=== PATIENT | female | born 1950 | race Caucasian/White ===

== ENCOUNTER 2016-07-18 15:55 | Emergency (ER) | payer BC ==
[2016-07-18 16:31] VITALS: BP 121/76
--- NOTE | 2016-07-18 17:02 | UC ---
Complaint Female HPI - HPI Summary HPI Summary: Patient has had unusually large volume of vaginal discharge for the past three weeks, denies any pain or odor. She is not sexually active. according to patient is has been longer then 10 years - History Of Current Complaint Chief Complaint: [facility] Stated Complaint: DISCHARGE Time Seen by Provider: 07/18/16 16:40 Hx Obtained From: Patient ?: No Onset/Duration: Sudden Onset, Lasting Weeks Timing: Constant Severity Initially: Mild Severity Currently: Moderate Aggravating Factor(s): Nothing Alleviating Factor(s): Nothing Associated Signs And Symptoms: Positive: Vaginal Discharge - Allergies/Home Medications Allergies/Adverse Reactions: Allergies Allergy/AdvReac Type Severity Reaction Status Date / Time Adhesive Tape Allergy Rash Verified 05/26/15 12:09 Home Medications: Home Medications clonazePAM TAB(*) [Klonopin TAB(*)] 1 mg PO TID PRN 07/18/16 [History Confirmed 07/18/16] PMH/Surg Hx/FS Hx/Imm Hx Previously Healthy: Yes Endocrine History Of: Denies: Diabetes, Thyroid Disease Cardiovascular History Of: Reports: Hypertension Denies: Cardiac Disorders Respiratory History Of: Denies: COPD, Asthma GI/ History Of: Reports: Ulcer - gerd Psychological History Of: Reports: Anxiety, Depression, Bipolar Disorder Cancer History Of: Reports: Breast Cancer - RIGHT - Surgical History Surgical History: Yes Surgery Procedure, Year, and Place: see above - Family History Known Family History: Negative: Hypertension, Respiratory Disease - Social History Alcohol Use: Occasionally Substance Use Type: None Smoking Status (MU): Never Smoked Tobacco Review of Systems Constitutional: Negative Skin: Negative Eyes: Negative, Drainage, Eye Redness ENT: Negative Respiratory: Negative Cardiovascular: Negative Gastrointestinal: Negative Genitourinary: Other - discharge Motor: Negative Neurovascular: Negative Musculoskeletal: Negative Neurological: Negative Psychological: Negative All Other Systems Reviewed And Are Negative: Yes Physical Exam Triage Information Reviewed: Yes Appearance: Well-Nourished, Ill-Appearing, Pain Distress Vital Signs: Initial Vital Signs Temp 96.5 F 07/18/16 16:27 Pulse 67 07/18/16 16:27 Resp 18 07/18/16 16:27 BP 121/76 07/18/16 16:27 Pulse Ox 97 07/18/16 16:27 Vital Signs Reviewed: Yes Eye Exam: Normal Eyes: Positive: Conjunctiva Clear, Discharge, Other: - green, inflammed conjunctiva ENT Exam: Normal ENT: Positive: Pharynx normal, Pharyngeal erythema, TMs normal Dental Exam: Normal Neck exam: Normal Neck: Positive: Supple, Nontender, No Lymphadenopathy Respiratory Exam: Normal Respiratory: Positive: Chest non-tender, Lungs clear, Normal breath sounds Cardiovascular Exam: Normal Cardiovascular: Positive: RRR, No Murmur, Pulses Normal Abdominal Exam: Normal Abdomen Description: Positive: Nontender, No Organomegaly, Soft, CVA Tenderness (R) - neg, CVA Tenderness (L) - neg, Other: - PELVIC: vaginal robles pink, large amount of creamy slighly green drainage, cervix pink and soft, manual exam benign. no lesions noted Bowel Sounds: Positive: Present Musculoskeletal Exam: Normal Musculoskeletal: Positive: Strength Intact, ROM Intact, No Edema Neurological Exam: Normal Neurological: Positive: Alert, Muscle Tone Normal Psychological Exam: Normal Skin Exam: Normal Complaint Female Dx - Course Course Of Treatment: hx obtained, exam performed, meds reviewed, pelvic exam performed, cuture obtained, treated for BV and conjunctivitis - Differential Dx/Diagnosis Differential Diagnosis/HQI/PQRI: Cervicitis, Sexually Transmitted Disease, Ureteral Stone, Urinary Tract Infection Provider Diagnoses: bacterial vaginosis. conjunctivitis Discharge - Discharge Plan Condition: Stable Disposition: HOME Prescriptions: Erythromycin OPHTH.OINT* [Ilotycin OPHTH.OINT*] 1 applic RIGHT EYE TID #1 tube Metronidazole [Flagyl 500 MG TAB] 500 mg PO BID #14 tab Patient Education Materials: Bacterial Vaginosis (ED), Conjunctivitis (ED) Referrals: Ian Jackson MD [Primary Care Provider] - Additional Instructions: 1. take the medication as prescribed. 2. Follow up with any worsening symtpoms
== END 2016-07-18 17:10 | disposition home or self-care (01) ==
LOC: UCEAST 15:55
DX: N76.0 Acute vaginitis (principal); H10.9 Unspecified conjunctivitis; I10 Essential (primary) hypertension; K21.9 Gastro-esophageal reflux disease without esophagitis; F41.9 Anxiety disorder, unspecified; F33.9 Major depressive disorder, recurrent, unspecified; C50.911 Malignant neoplasm of unspecified site of right female breast
CPT/HCPCS: 87480; 87510; 99212; G0463